=== PATIENT | male | born 1955 ===

== ENCOUNTER 2017-04-20 00:27 | Inpatient (IN) ==
[2017-04-20 01:31] LABS: Basophils # 0.1 10*3/uL (0.0-0.2); Basophils % 0.6 % (0.0-0.8); Eosinophils # 0.2 10*3/uL (0.0-0.87); Eosinophils % 2.2 % (0.00-10.9); Hematocrit 47.9 VOL% (42.0-52.0); Hemoglobin 17.1 GM/DL (14.0-18.0); Immature Granulocytes % 0.4 %; Immature Granulocytes Absolute 0.04 #; Lymphocytes # 1.7 10*3/uL (1.4-4.0); Lymphocytes % 18.3 % (21.2-54.2); Mean Corpuscular HGB Conc 35.7 GM/DL (32-36); Mean Corpuscular Hemoglobin 33 PG (27-34); Mean Platelet Volume 9.5 FL (9.6-12.0); Monocytes # 0.5 10*3/uL (0.11-0.8); Monocytes % 5.6 % (1.7-12.7); Neutrophils # 6.8 10*3/uL (1.4-7.4); Neutrophils % 72.9 % (38.7-73.9); Platelet Count 214 T/CUMM (130-400); Red Blood Count 5.15 MC/CUMM (3.8-5.5); Red Cell Distribution Width 14.8 % (9.3-17.3); White Blood Count 9.3 T/CUMM (4-12)
[2017-04-20 01:41] LABS: Blood Urea Nitrogen 17 MG/DL (7-18); Calcium 6.7 MG/DL (8.5-10.1); Glucose 130 MG/DL (74-106); Osmolality,Calculated 282.4 MOS/KG (273-304); Sodium 140 MMOL/L (136-145)
[2017-04-20 02:08] LABS: Potassium 2.3 MMOL/L (3.5-5.1)
[2017-04-20 02:38] LABS: Barbiturates Screen,Urine Negative (Negative); Benzodiazepines Screen,Urine Negative (Negative); Cannabinoid Screen,Urine Positive (Negative); Opiate Screen,Urine Negative (Negative); Phencyclidine Screen,Urine Negative (Negative)
[2017-04-20] MEDS ORDERED: ONDANSETRON 4 MG/2 ML VIAL IV PRN (04:06)
[2017-04-20] MEDS ORDERED: ACETAMINOPHEN 325 MG TABLET PO PRN (04:06)
[2017-04-20] MEDS ORDERED: NITROGLYCERIN SL 0.4 MG TABLET SL PRN (04:14)
[2017-04-20] MEDS ORDERED: GLUCAGON 1 MG VIAL IM PRN (04:15)
[2017-04-20] MEDS ORDERED: POTASSIUM CHLORIDE 20 MEQ TABLET PO PRN ×3 (04:15→05:08)
[2017-04-20] MEDS ORDERED: SODIUM CHLORIDE 0.9% 1,000 ML IV SCH (04:30)
[2017-04-20] MEDS ORDERED: POTASSIUM CHLORIDE 20 MEQ TABLET PO ONE (05:47)
[2017-04-20] MEDS: INSULIN LISPRO 100 UNIT/ML SUBCUT SCH ×4 (08:44→20:29)
[2017-04-20] MEDS: LOSARTAN 50 MG TABLET PO SCH (09:08)
[2017-04-20] MEDS: ENOXAPARIN 40 MG/0.4 ML SYRINGE SUBCUT SCH (09:08)
[2017-04-20] MEDS: CARVEDILOL 12.5 MG TABLET PO SCH ×2 (09:09→20:47)
[2017-04-20] MEDS: CALCIUM (CARBONATE)/VITAMIN D 500 MG-200 UNIT TABLET PO SCH (09:09)
[2017-04-20] MEDS: PANTOPRAZOLE 40 MG TABLET PO SCH (09:10)
[2017-04-20] MEDS ORDERED: MAGNESIUM SULF INJ 3 GM in SODIUM CHLORIDE 0.9% 100 ML IV ONE (09:36)
[2017-04-20] MEDS ORDERED: CALCIUM GLUCONATE 1,000 MG in SODIUM CHLORIDE 0.9% 100 ML IV ONE (09:41)
[2017-04-20] MEDS: SODIUM CHLORIDE 0.9% 1,000 ML IV SCH ×3 (10:56→18:54)
[2017-04-20] MEDS: amLODIPine 5 MG TABLET PO SCH (10:58)
[2017-04-20] MEDS: SIMVASTATIN 20 MG TABLET PO SCH (20:47)
[2017-04-20] MEDS: INSULIN GLARGINE 100 UNIT/ML SUBCUT SCH (20:47)
[2017-04-21] MEDS: SODIUM CHLORIDE 0.9% 1,000 ML IV SCH (02:10)
[2017-04-21 05:57] LABS: Basophils # 0.1 10*3/uL (0.0-0.2); Basophils % 0.7 % (0.0-0.8); Eosinophils # 0.2 10*3/uL (0.0-0.87); Eosinophils % 2.5 % (0.00-10.9); Hemoglobin 15.7 GM/DL (14.0-18.0); Immature Granulocytes % 0.5 %; Immature Granulocytes Absolute 0.04 #; Lymphocytes # 1.6 10*3/uL (1.4-4.0); Lymphocytes % 18.9 % (21.2-54.2); Mean Corpuscular HGB Conc 34.9 GM/DL (32-36); Mean Corpuscular Hemoglobin 33 PG (27-34); Mean Corpuscular Volume 93.9 FL (87-102); Mean Platelet Volume 9.4 FL (9.6-12.0); Monocytes # 0.6 10*3/uL (0.11-0.8); Monocytes % 7.1 % (1.7-12.7); Neutrophils # 5.9 10*3/uL (1.4-7.4); Neutrophils % 70.3 % (38.7-73.9); Platelet Count 187 T/CUMM (130-400); Red Blood Count 4.79 MC/CUMM (3.8-5.5); Red Cell Distribution Width 14.6 % (9.3-17.3); White Blood Count 8.4 T/CUMM (4-12)
[2017-04-21 06:33] LABS: Bilirubin,Total 0.9 MG/DL (0.2-1.0); Calcium 6.6 MG/DL (8.5-10.1); Osmolality,Calculated 283.3 MOS/KG (273-304); Total Protein 5.5 G/DL (6.4-8.3)
[2017-04-21 06:53] LABS: Potassium 2.2 MMOL/L (3.5-5.1)
[2017-04-21] MEDS ORDERED: MAGNESIUM SULF RIDER 2 GM in PREMIX 1 EACH IV PRN (06:57)
[2017-04-21] MEDS ORDERED: MAGNESIUM SULF RIDER 4 GM in PREMIX 1 EACH IV PRN (06:57)
[2017-04-21] MEDS ORDERED: CALCIUM GLUCONATE 1,000 MG in SODIUM CHLORIDE 0.9% 100 ML IV ONE (08:00)
[2017-04-21] MEDS: POTASSIUM CHLORIDE INJ 30 MEQ in SODIUM CHLORIDE 0.9% 1,000 ML IV SCH ×3 (09:54→23:09)
[2017-04-21] MEDS: PANTOPRAZOLE 40 MG TABLET PO SCH (09:55)
[2017-04-21] MEDS: amLODIPine 5 MG TABLET PO SCH (09:55)
[2017-04-21] MEDS: CARVEDILOL 12.5 MG TABLET PO SCH ×2 (09:55→21:40)
[2017-04-21] MEDS: LOSARTAN 50 MG TABLET PO SCH (09:55)
[2017-04-21] MEDS: CALCIUM (CARBONATE)/VITAMIN D 500 MG-200 UNIT TABLET PO SCH (09:55)
[2017-04-21] MEDS: CHOLESTYRAMINE/ASPARTAME 4 GM PACK PO SCH (09:56)
[2017-04-21] MEDS: ENOXAPARIN 40 MG/0.4 ML SYRINGE SUBCUT SCH (09:57)
[2017-04-21] MEDS: INSULIN LISPRO 100 UNIT/ML SUBCUT SCH ×4 (09:57→21:43)
[2017-04-21] MEDS ORDERED: ALPRAZolam 0.5 MG TABLET PO PRN (18:26)
[2017-04-21] MEDS ORDERED: LORazepam 2 MG/1 ML VIAL IV ONE (18:26)
[2017-04-21] MEDS: chlordiazePOXIDE 25 MG CAPSULE PO SCH ×2 (19:20→21:40)
[2017-04-21] MEDS: ZALEPLON 5 MG CAPSULE PO SCH (21:40)
[2017-04-21] MEDS: LORazepam 1 MG TABLET PO SCH (21:40)
[2017-04-21] MEDS: SIMVASTATIN 20 MG TABLET PO SCH (21:40)
[2017-04-21] MEDS: INSULIN GLARGINE 100 UNIT/ML SUBCUT SCH (21:41)
[2017-04-21] MEDS: THIAMINE INJ 100 MG, FOLIC ACID INJ 1 MG, MULTIVITAMIN INJ 10 ML in SODIUM CHLORIDE 0.4... IV SCH (22:36)
[2017-04-22 02:49] LABS: Basophils # 0.1 10*3/uL (0.0-0.2); Basophils % 0.6 % (0.0-0.8); Eosinophils # 0.2 10*3/uL (0.0-0.87); Eosinophils % 2.2 % (0.00-10.9); Hematocrit 43.7 VOL% (42.0-52.0); Hemoglobin 14.9 GM/DL (14.0-18.0); Immature Granulocytes % 0.5 %; Immature Granulocytes Absolute 0.04 #; Lymphocytes # 1.7 10*3/uL (1.4-4.0); Lymphocytes % 19.4 % (21.2-54.2); Mean Corpuscular HGB Conc 34.1 GM/DL (32-36); Mean Corpuscular Hemoglobin 33 PG (27-34); Mean Corpuscular Volume 95.6 FL (87-102); Mean Platelet Volume 9.8 FL (9.6-12.0); Monocytes # 0.6 10*3/uL (0.11-0.8); Monocytes % 7.1 % (1.7-12.7); Neutrophils % 70.2 % (38.7-73.9); Platelet Count 171 T/CUMM (130-400); Red Blood Count 4.57 MC/CUMM (3.8-5.5); Red Cell Distribution Width 14.4 % (9.3-17.3); White Blood Count 8.6 T/CUMM (4-12)
[2017-04-22 04:43] LABS: Bilirubin,Total 0.7 MG/DL (0.2-1.0); Calcium 6.7 MG/DL (8.5-10.1); Total Protein 5.3 G/DL (6.4-8.3)
[2017-04-22 04:54] LABS: Potassium 2.3 MMOL/L (3.5-5.1)
[2017-04-22] MEDS ORDERED: CALCIUM GLUCONATE 2,000 MG in SODIUM CHLORIDE 0.9% 100 ML IV ONE (08:00)
[2017-04-22] MEDS ORDERED: POTASSIUM PHOSPHATE 30 MMOL in SODIUM CHLORIDE 0.9% 250 ML IV ONE (09:00)
[2017-04-22] MEDS ORDERED: MAGNESIUM SULF RIDER 4 GM in PREMIX 1 EACH IV PRN (09:15)
[2017-04-22] MEDS: CARVEDILOL 12.5 MG TABLET PO SCH ×2 (09:56→21:14)
[2017-04-22] MEDS: CALCIUM (CARBONATE)/VITAMIN D 500 MG-200 UNIT TABLET PO SCH (09:56)
[2017-04-22] MEDS: LORazepam 1 MG TABLET PO SCH ×3 (09:57→21:14)
[2017-04-22] MEDS: PANTOPRAZOLE 40 MG TABLET PO SCH (09:57)
[2017-04-22] MEDS: chlordiazePOXIDE 25 MG CAPSULE PO SCH ×3 (09:57→21:13)
[2017-04-22] MEDS: LOSARTAN 50 MG TABLET PO SCH (09:57)
[2017-04-22] MEDS: amLODIPine 5 MG TABLET PO SCH (09:57)
[2017-04-22] MEDS: SODIUM CHLOR 0.9% KCL 40 MEQ 40 MEQ/1,000 ML BAG IV SCH ×2 (10:20→15:23)
[2017-04-22] MEDS: POTASSIUM CHLORIDE 20 MEQ TABLET PO SCH ×4 (10:27→21:13)
[2017-04-22] MEDS: INSULIN LISPRO 100 UNIT/ML SUBCUT SCH ×4 (10:44→21:48)
[2017-04-22] MEDS: POTASSIUM CHLORIDE INJ 30 MEQ in SODIUM CHLORIDE 0.9% 1,000 ML IV SCH (10:48)
[2017-04-22] MEDS: POTASSIUM CHLORIDE RIDER 10 MEQ in PREMIX 1 EACH IV SCH ×2 (11:43→12:57)
[2017-04-22] MEDS ORDERED: POLYETHYLENE GLYCOL POWDER 255 GM BOTTLE PO ONE (18:00)
[2017-04-22 20:34] LABS: Calcium 7.1 MG/DL (8.5-10.1); Osmolality,Calculated 283.5 MOS/KG (273-304); Potassium 3.5 MMOL/L (3.5-5.1)
[2017-04-22] MEDS ORDERED: MAGNESIUM CITRATE 300 ML BOTTLE PO ONE (21:00)
[2017-04-22] MEDS: ZALEPLON 5 MG CAPSULE PO SCH (21:13)
[2017-04-22] MEDS: SIMVASTATIN 20 MG TABLET PO SCH (21:13)
[2017-04-22] MEDS: POTASSIUM CHLORIDE RIDER 10 MEQ in PREMIX 1 EACH IV PRN (21:14)
[2017-04-22] MEDS: THIAMINE INJ 100 MG, FOLIC ACID INJ 1 MG, MULTIVITAMIN INJ 10 ML in SODIUM CHLORIDE 0.4... IV SCH (21:33)
[2017-04-22] MEDS: INSULIN GLARGINE 100 UNIT/ML SUBCUT SCH (21:48)
[2017-04-23] MEDS: SODIUM CHLOR 0.9% KCL 40 MEQ 40 MEQ/1,000 ML BAG IV SCH ×4 (04:17→21:50)
[2017-04-23] MEDS ORDERED: SODIUM CHLORIDE 0.9% 1,000 ML IV PRN (04:56)
[2017-04-23] MEDS: POTASSIUM CHLORIDE RIDER 10 MEQ in PREMIX 1 EACH IV PRN ×2 (05:26→10:09)
[2017-04-23 06:14] LABS: Basophils % 0.4 % (0.0-0.8); Eosinophils # 0.2 10*3/uL (0.0-0.87); Eosinophils % 1.8 % (0.00-10.9); Hematocrit 43.6 VOL% (42.0-52.0); Immature Granulocytes % 0.6 %; Immature Granulocytes Absolute 0.07 #; Lymphocytes # 0.8 10*3/uL (1.4-4.0); Lymphocytes % 6.8 % (21.2-54.2); Mean Corpuscular HGB Conc 34.4 GM/DL (32-36); Mean Corpuscular Hemoglobin 33 PG (27-34); Mean Corpuscular Volume 94.8 FL (87-102); Mean Platelet Volume 10.1 FL (9.6-12.0); Monocytes # 0.8 10*3/uL (0.11-0.8); Monocytes % 7.3 % (1.7-12.7); Neutrophils # 9.5 10*3/uL (1.4-7.4); Neutrophils % 83.1 % (38.7-73.9); Platelet Count 168 T/CUMM (130-400); Red Cell Distribution Width 14.5 % (9.3-17.3); White Blood Count 11.4 T/CUMM (4-12)
[2017-04-23 06:18] LABS: PT Patient Result 10.7 SECS; Partial Thromboplastin Time 32.7 SECS (0-40)
[2017-04-23 06:43] LABS: Albumin 1.9 G/DL (3.4-5.0); Bilirubin,Total 0.9 MG/DL (0.2-1.0); Calcium 7.1 MG/DL (8.5-10.1); Osmolality,Calculated 279.1 MOS/KG (273-304); Potassium 3.1 MMOL/L (3.5-5.1)
[2017-04-23 06:49] LABS: Calcium 7.1 MG/DL (8.5-10.1); Osmolality,Calculated 279.1 MOS/KG (273-304); Potassium 3.1 MMOL/L (3.5-5.1)
[2017-04-23] MEDS ORDERED: POTASSIUM PHOSPHATE 30 MMOL in SODIUM CHLORIDE 0.9% 250 ML IV ONE (08:00)
[2017-04-23] MEDS: POTASSIUM CHLORIDE RIDER 10 MEQ in PREMIX 1 EACH IV SCH ×4 (09:11→11:10)
[2017-04-23] MEDS: LOSARTAN 50 MG TABLET PO SCH (09:12)
[2017-04-23] MEDS: CALCIUM (CARBONATE)/VITAMIN D 500 MG-200 UNIT TABLET PO SCH (09:13)
[2017-04-23] MEDS: PANTOPRAZOLE 40 MG TABLET PO SCH (09:13)
[2017-04-23] MEDS: amLODIPine 5 MG TABLET PO SCH (09:13)
[2017-04-23] MEDS: POTASSIUM CHLORIDE 20 MEQ TABLET PO SCH ×4 (09:13→21:38)
[2017-04-23] MEDS: CARVEDILOL 12.5 MG TABLET PO SCH ×2 (09:13→21:39)
[2017-04-23] MEDS: chlordiazePOXIDE 25 MG CAPSULE PO SCH ×4 (09:36→21:49)
[2017-04-23] MEDS: LORazepam 1 MG TABLET PO SCH ×4 (09:36→21:45)
[2017-04-23] MEDS ORDERED: hydrALAZINE 20 MG/1 ML VIAL IV ONE (09:43)
[2017-04-23] MEDS: INSULIN LISPRO 100 UNIT/ML SUBCUT SCH ×4 (09:48→21:47)
[2017-04-23] MEDS: DEXTROSE 50% 25 GM/50 ML VIAL IV PRN ×2 (16:59→23:26)
[2017-04-23] MEDS: THIAMINE INJ 100 MG, FOLIC ACID INJ 1 MG, MULTIVITAMIN INJ 10 ML in SODIUM CHLORIDE 0.4... IV SCH ×2 (17:10→21:49)
[2017-04-23] MEDS: SIMVASTATIN 20 MG TABLET PO SCH (21:39)
[2017-04-23] MEDS: INSULIN GLARGINE 100 UNIT/ML SUBCUT SCH (21:48)
[2017-04-23] MEDS: ZALEPLON 5 MG CAPSULE PO SCH (21:49)
[2017-04-24 04:59] LABS: Basophils # 0.1 10*3/uL (0.0-0.2); Basophils % 0.7 % (0.0-0.8); Eosinophils # 0.2 10*3/uL (0.0-0.87); Eosinophils % 2.5 % (0.00-10.9); Hematocrit 41.3 VOL% (42.0-52.0); Hemoglobin 13.6 GM/DL (14.0-18.0); Immature Granulocytes % 0.5 %; Immature Granulocytes Absolute 0.04 #; Lymphocytes # 1.5 10*3/uL (1.4-4.0); Lymphocytes % 19.4 % (21.2-54.2); Mean Corpuscular HGB Conc 32.9 GM/DL (32-36); Mean Corpuscular Hemoglobin 33 PG (27-34); Mean Platelet Volume 9.3 FL (9.6-12.0); Monocytes # 0.8 10*3/uL (0.11-0.8); Monocytes % 10.9 % (1.7-12.7); Neutrophils # 5.1 10*3/uL (1.4-7.4); Platelet Count 142 T/CUMM (130-400); Red Blood Count 4.13 MC/CUMM (3.8-5.5); Red Cell Distribution Width 14.7 % (9.3-17.3); White Blood Count 7.7 T/CUMM (4-12)
[2017-04-24] MEDS: SODIUM CHLOR 0.9% KCL 40 MEQ 40 MEQ/1,000 ML BAG IV SCH ×3 (06:52→08:05)
[2017-04-24] MEDS: DEXTROSE 50% 25 GM/50 ML VIAL IV PRN (07:54)
[2017-04-24] MEDS ORDERED: FAMOTIDINE 20 MG TABLET PO ONE (08:00)
[2017-04-24 08:08] LABS: Calcium 6.7 MG/DL (8.5-10.1); Osmolality,Calculated 278.3 MOS/KG (273-304)
[2017-04-24] MEDS ORDERED: MAGNESIUM CITRATE 300 ML BOTTLE PO STA (08:16)
[2017-04-24] MEDS: SODIUM CHLOR 0.9% KCL 20 MEQ 20 MEQ/1,000 ML BAG IV SCH ×2 (10:31→21:25)
[2017-04-24] MEDS ORDERED: INSULIN GLARGINE 100 UNIT/ML SUBCUT SCH (10:57)
[2017-04-24] MEDS: INSULIN LISPRO 100 UNIT/ML SUBCUT SCH ×4 (11:24→21:13)
[2017-04-24] MEDS: chlordiazePOXIDE 25 MG CAPSULE PO SCH ×3 (11:47→21:12)
[2017-04-24] MEDS: LORazepam 1 MG TABLET PO SCH ×3 (11:47→21:11)
[2017-04-24] MEDS ORDERED: PROPOFOL 200 MG/20 ML VIAL IV ONE (15:36)
[2017-04-24] MEDS ORDERED: hydrALAZINE 20 MG/1 ML VIAL ONE (15:36)
[2017-04-24] MEDS: CHOLESTYRAMINE/ASPARTAME 4 GM PACK PO SCH ×2 (16:20→21:14)
[2017-04-24] MEDS: CARVEDILOL 12.5 MG TABLET PO SCH ×2 (16:20→21:12)
[2017-04-24] MEDS: amLODIPine 5 MG TABLET PO SCH (16:22)
[2017-04-24] MEDS: MAGNESIUM OXIDE 400 MG TABLET PO SCH ×2 (16:22→21:12)
[2017-04-24] MEDS: CALCIUM (CARBONATE)/VITAMIN D 500 MG-200 UNIT TABLET PO SCH (16:22)
[2017-04-24] MEDS: LOSARTAN 50 MG TABLET PO SCH (16:22)
[2017-04-24] MEDS: PANTOPRAZOLE 40 MG TABLET PO SCH (16:22)
[2017-04-24] MEDS: DIPHENOXYLATE/ATROPINE 2.5-0.025 MG TABLET PO SCH ×2 (16:57→21:11)
[2017-04-24] MEDS: SIMVASTATIN 20 MG TABLET PO SCH (21:11)
[2017-04-24] MEDS: CIPROFLOXACIN 500 MG TABLET PO SCH (21:12)
[2017-04-24] MEDS: THIAMINE INJ 100 MG, FOLIC ACID INJ 1 MG, MULTIVITAMIN INJ 10 ML in SODIUM CHLORIDE 0.4... IV SCH (21:14)
[2017-04-24] MEDS: ZALEPLON 5 MG CAPSULE PO SCH (21:14)
[2017-04-25] MEDS ORDERED: IBUPROFEN 800 MG TABLET PO ONE (01:00)
[2017-04-25 05:04] LABS: Basophils # 0.1 10*3/uL (0.0-0.2); Basophils % 0.9 % (0.0-0.8); Eosinophils # 0.2 10*3/uL (0.0-0.87); Eosinophils % 2.1 % (0.00-10.9); Hematocrit 42.8 VOL% (42.0-52.0); Hemoglobin 13.9 GM/DL (14.0-18.0); Immature Granulocytes % 0.5 %; Immature Granulocytes Absolute 0.04 #; Lymphocytes # 1.2 10*3/uL (1.4-4.0); Lymphocytes % 14.8 % (21.2-54.2); Mean Corpuscular HGB Conc 32.5 GM/DL (32-36); Mean Corpuscular Hemoglobin 33 PG (27-34); Mean Corpuscular Volume 100.9 FL (87-102); Mean Platelet Volume 9.6 FL (9.6-12.0); Monocytes # 0.8 10*3/uL (0.11-0.8); Monocytes % 9.4 % (1.7-12.7); Neutrophils % 72.3 % (38.7-73.9); Platelet Count 162 T/CUMM (130-400); Red Blood Count 4.24 MC/CUMM (3.8-5.5); Red Cell Distribution Width 14.7 % (9.3-17.3); White Blood Count 8.2 T/CUMM (4-12)
[2017-04-25 05:25] LABS: Potassium 4.8 MMOL/L (3.5-5.1)
[2017-04-25] MEDS: INSULIN LISPRO 100 UNIT/ML SUBCUT SCH ×2 (09:45→11:47)
[2017-04-25] MEDS: LORazepam 1 MG TABLET PO SCH (09:46)
[2017-04-25] MEDS: LOSARTAN 50 MG TABLET PO SCH (09:46)
[2017-04-25] MEDS: DIPHENOXYLATE/ATROPINE 2.5-0.025 MG TABLET PO SCH ×2 (09:46→13:26)
[2017-04-25] MEDS: chlordiazePOXIDE 25 MG CAPSULE PO SCH (09:46)
[2017-04-25] MEDS: CIPROFLOXACIN 500 MG TABLET PO SCH (09:46)
[2017-04-25] MEDS: PANTOPRAZOLE 40 MG TABLET PO SCH (09:46)
[2017-04-25] MEDS: CALCIUM (CARBONATE)/VITAMIN D 500 MG-200 UNIT TABLET PO SCH (09:46)
[2017-04-25] MEDS: amLODIPine 5 MG TABLET PO SCH (09:47)
[2017-04-25] MEDS: MAGNESIUM OXIDE 400 MG TABLET PO SCH (09:47)
[2017-04-25] MEDS: CARVEDILOL 12.5 MG TABLET PO SCH (09:47)
[2017-04-25] MEDS: CHOLESTYRAMINE/ASPARTAME 4 GM PACK PO SCH (09:49)
[2017-04-25] MEDS: SODIUM CHLOR 0.9% KCL 20 MEQ 20 MEQ/1,000 ML BAG IV SCH (10:52)
[2017-04-25 11:52] VITALS: BP 140/78
== END 2017-04-25 13:45 | disposition home or self-care (01) | DRG 392 ==
LOC: EDUNIT# → N.ED 00:27 → N.EDINP 00:27 → N.TELEN 03:57

== ENCOUNTER 2017-07-14 20:10 | Inpatient (IN) ==
[2017-07-15] MEDS ORDERED: ALBUTEROL/IPRATROPIUM 3 ML NEB RESP TX PRN (00:43)
[2017-07-15] MEDS ORDERED: NITROGLYCERIN SL 0.4 MG TABLET SL PRN (00:44)
[2017-07-15] MEDS ORDERED: SODIUM CHLORIDE 0.9% 1,000 ML IV SCH (01:00)
[2017-07-15] MEDS ORDERED: GLUCAGON 1 MG VIAL IM PRN (01:04)
[2017-07-15 01:50] LABS: Basophils # 0.1 10*3/uL (0.0-0.2); Eosinophils # 0.4 10*3/uL (0.0-0.87); Eosinophils % 4.3 % (0.00-10.9); Hematocrit 32.4 VOL% (42.0-52.0); Hemoglobin 10.5 GM/DL (14.0-18.0); Immature Granulocytes Absolute 0.09 #; Lymphocytes # 0.9 10*3/uL (1.4-4.0); Lymphocytes % 10.3 % (21.2-54.2); Mean Corpuscular HGB Conc 32.4 GM/DL (32-36); Mean Corpuscular Hemoglobin 31 PG (27-34); Mean Corpuscular Volume 96.4 FL (87-102); Mean Platelet Volume 10.7 FL (9.6-12.0); Monocytes # 0.7 10*3/uL (0.11-0.8); Monocytes % 8.1 % (1.7-12.7); Neutrophils # 6.7 10*3/uL (1.4-7.4); Neutrophils % 75.3 % (38.7-73.9); Platelet Count 346 T/CUMM (130-400); Red Blood Count 3.36 MC/CUMM (3.8-5.5); Red Cell Distribution Width 13.2 % (9.3-17.3); White Blood Count 8.8 T/CUMM (4-12)
[2017-07-15 02:25] LABS: Alanine Aminotransferase 22 U/L (16-61); Albumin 2.1 G/DL (3.4-5.0); Alkaline Phosphatase 150 U/L (45-117); Aspartate Amino Transferase 36 U/L (0-37); Bilirubin,Total < 0.39 MG/DL (0.2-1.0); Blood Urea Nitrogen 65 MG/DL (7-18); Glucose 77 MG/DL (74-106); Osmolality,Calculated 298.3 MOS/KG (273-304); Sodium 141 MMOL/L (136-145); Total Protein 7.3 G/DL (6.4-8.3)
[2017-07-15] MEDS ORDERED: LEVOFLOXACIN INJ 750 MG in PREMIX 1 EACH IV SCH (02:30)
[2017-07-15 06:03] LABS: Apearance,Urine CLEAR (Clear); Bacteria,Urine Occasional /HPF (Few); Bilirubin,Urine Negative (Negative); Blood, Urine Negative (Negative); Glucose,Urine (UA) Negative (Negative); Hyaline Casts,Urine 8 /LPF (0-3); Ketones,Urine Negative (Negative); Nitrite,Urine Negative (Negative); Protein,Urine 100 MG/DL; Squamous Epithelial Cell,Urine Occasional /HPF (0-10); Urine Color Yellow (Yellow); Urine Specific Gravity 1.009 (1.001-1.035); Urine Urobilinogen < 2.0 EU/DL (0.2-1.0); WBC,Urine <1 /HPF (0-6)
[2017-07-15 06:08] LABS: Basophils # 0.1 10*3/uL (0.0-0.2); Basophils % 0.9 % (0.0-0.8); Eosinophils # 0.3 10*3/uL (0.0-0.87); Eosinophils % 3.9 % (0.00-10.9); Hemoglobin 10.3 GM/DL (14.0-18.0); Immature Granulocytes Absolute 0.09 #; Lymphocytes % 10.9 % (21.2-54.2); Mean Corpuscular HGB Conc 32.2 GM/DL (32-36); Mean Corpuscular Hemoglobin 31 PG (27-34); Mean Platelet Volume 11.1 FL (9.6-12.0); Monocytes # 0.8 10*3/uL (0.11-0.8); Monocytes % 8.6 % (1.7-12.7); Neutrophils # 6.5 10*3/uL (1.4-7.4); Neutrophils % 74.7 % (38.7-73.9); Platelet Count 367 T/CUMM (130-400); Red Cell Distribution Width 13.3 % (9.3-17.3); White Blood Count 8.8 T/CUMM (4-12)
[2017-07-15] MEDS: INSULIN REGULAR 100 UNIT/ML SUBCUT SCH ×3 (06:40→17:45)
[2017-07-15] MEDS ORDERED: FUROSEMIDE 40 MG/4 ML VIAL IV SCH (09:00)
[2017-07-15] MEDS: PANTOPRAZOLE 40 MG TABLET PO SCH (09:54)
[2017-07-15] MEDS: ENOXAPARIN 30 MG/0.3 ML SYRINGE SUBCUT SCH (09:54)
[2017-07-15] MEDS: CARVEDILOL 12.5 MG TABLET PO SCH ×2 (09:54→21:23)
[2017-07-15] MEDS: CALCIUM (CARBONATE)/VITAMIN D 500 MG-200 UNIT TABLET PO SCH (09:54)
[2017-07-15] MEDS: amLODIPine 5 MG TABLET PO SCH (09:54)
[2017-07-15] MEDS ORDERED: FUROSEMIDE 40 MG/4 ML VIAL IV ONE (10:30)
[2017-07-15] MEDS: SILVER SULFADIAZINE 1% CREAM 25 GM TUBE TOP SCH (13:15)
[2017-07-15 14:40] LABS: Amorphous Crystals,Urine Occasional /HPF (Few); Apearance,Urine CLOUDY (Clear); Bacteria,Urine Occasional /HPF (Few); Bilirubin,Urine Negative (Negative); Blood, Urine Moderate mg/dL (Negative); Glucose,Urine (UA) Negative (Negative); Granular Casts,Urine 4 /LPF (0-1); Hyaline Casts,Urine 4 /LPF (0-3); Ketones,Urine Negative (Negative); Mucus,Urine Occasional /LPF (Occasional); Nitrite,Urine Negative (Negative); Protein,Urine 100 MG/DL; Renal Epithelial Cells,Urine Occasional /HPF (<1); Urine Color Yellow (Yellow); Urine Specific Gravity 1.009 (1.001-1.035); Urine Urobilinogen < 2.0 EU/DL (0.2-1.0); WBC,Urine 2 /HPF (0-6)
[2017-07-15] MEDS: ALBUMIN 25% 25 GM in PREMIX 1 EACH IV SCH ×2 (16:28→21:23)
[2017-07-15] MEDS: FUROSEMIDE 40 MG/4 ML VIAL IV SCH (16:49)
[2017-07-15] MEDS: SIMVASTATIN 20 MG TABLET PO SCH (21:23)
[2017-07-15] MEDS: INSULIN GLARGINE 100 UNIT/ML SUBCUT SCH (21:24)
[2017-07-16] MEDS: INSULIN REGULAR 100 UNIT/ML SUBCUT SCH ×5 (00:04→23:59)
[2017-07-16] MEDS: FUROSEMIDE 40 MG/4 ML VIAL IV SCH ×3 (01:35→16:35)
[2017-07-16] MEDS: ALBUMIN 25% 25 GM in PREMIX 1 EACH IV SCH ×3 (05:24→21:00)
[2017-07-16 07:24] LABS: Basophils # 0.1 10*3/uL (0.0-0.2); Basophils % 0.9 % (0.0-0.8); Eosinophils # 0.3 10*3/uL (0.0-0.87); Eosinophils % 4.1 % (0.00-10.9); Hematocrit 29.3 VOL% (42.0-52.0); Hemoglobin 9.2 GM/DL (14.0-18.0); Immature Granulocytes % 0.8 %; Immature Granulocytes Absolute 0.05 #; Lymphocytes # 1.4 10*3/uL (1.4-4.0); Lymphocytes % 21.6 % (21.2-54.2); Mean Corpuscular HGB Conc 31.4 GM/DL (32-36); Mean Corpuscular Hemoglobin 31 PG (27-34); Mean Corpuscular Volume 97.7 FL (87-102); Mean Platelet Volume 10.6 FL (9.6-12.0); Monocytes # 0.8 10*3/uL (0.11-0.8); Monocytes % 11.5 % (1.7-12.7); Neutrophils % 61.1 % (38.7-73.9); Platelet Count 304 T/CUMM (130-400); Red Cell Distribution Width 13.6 % (9.3-17.3); White Blood Count 6.5 T/CUMM (4-12)
[2017-07-16 07:48] LABS: % Iron Saturation 18.1 % (18-50); Calcium 7.9 MG/DL (8.5-10.1); Osmolality,Calculated 306.8 MOS/KG (273-304); Potassium 4.1 MMOL/L (3.5-5.1); Uric Acid 9.7 MG/DL (3.5-7.2)
[2017-07-16 07:59] LABS: Parathyroid Hormone Intact 216.7 PG/ML (18.4-80.1)
[2017-07-16] MEDS: PANTOPRAZOLE 40 MG TABLET PO SCH (08:29)
[2017-07-16] MEDS: CALCIUM (CARBONATE)/VITAMIN D 500 MG-200 UNIT TABLET PO SCH (08:29)
[2017-07-16] MEDS: CARVEDILOL 12.5 MG TABLET PO SCH ×2 (08:29→20:59)
[2017-07-16] MEDS: amLODIPine 5 MG TABLET PO SCH (08:29)
[2017-07-16] MEDS: SILVER SULFADIAZINE 1% CREAM 25 GM TUBE TOP SCH (08:30)
[2017-07-16] MEDS: ENOXAPARIN 30 MG/0.3 ML SYRINGE SUBCUT SCH (08:30)
[2017-07-16] MEDS: INSULIN GLARGINE 100 UNIT/ML SUBCUT SCH (20:57)
[2017-07-16] MEDS: SIMVASTATIN 20 MG TABLET PO SCH (20:59)
[2017-07-17] MEDS: FUROSEMIDE 40 MG/4 ML VIAL IV SCH ×2 (00:03→09:11)
[2017-07-17] MEDS: ALBUMIN 25% 25 GM in PREMIX 1 EACH IV SCH (05:00)
[2017-07-17] MEDS: LEVOFLOXACIN INJ 500 MG in PREMIX 1 EACH IV SCH (05:59)
[2017-07-17 06:45] LABS: Basophils # 0.1 10*3/uL (0.0-0.2); Basophils % 1.1 % (0.0-0.8); Eosinophils # 0.3 10*3/uL (0.0-0.87); Eosinophils % 3.4 % (0.00-10.9); Hematocrit 30.7 VOL% (42.0-52.0); Hemoglobin 9.6 GM/DL (14.0-18.0); Immature Granulocytes % 0.8 %; Immature Granulocytes Absolute 0.07 #; Lymphocytes % 11.2 % (21.2-54.2); Mean Corpuscular HGB Conc 31.3 GM/DL (32-36); Mean Corpuscular Hemoglobin 31 PG (27-34); Monocytes # 0.8 10*3/uL (0.11-0.8); Monocytes % 8.6 % (1.7-12.7); Neutrophils # 6.5 10*3/uL (1.4-7.4); Neutrophils % 74.9 % (38.7-73.9); Platelet Count 302 T/CUMM (130-400); Red Blood Count 3.07 MC/CUMM (3.8-5.5); Red Cell Distribution Width 13.6 % (9.3-17.3); White Blood Count 8.7 T/CUMM (4-12)
[2017-07-17] MEDS: INSULIN REGULAR 100 UNIT/ML SUBCUT SCH ×3 (06:58→17:21)
[2017-07-17 07:10] LABS: Albumin 3.4 G/DL (3.4-5.0); Calcium 8.1 MG/DL (8.5-10.1); Potassium 4.2 MMOL/L (3.5-5.1)
[2017-07-17] MEDS: CALCIUM (CARBONATE)/VITAMIN D 500 MG-200 UNIT TABLET PO SCH (09:11)
[2017-07-17] MEDS: PANTOPRAZOLE 40 MG TABLET PO SCH (09:11)
[2017-07-17] MEDS: ENOXAPARIN 30 MG/0.3 ML SYRINGE SUBCUT SCH (09:11)
[2017-07-17] MEDS: CARVEDILOL 12.5 MG TABLET PO SCH (09:34)
[2017-07-17] MEDS: amLODIPine 5 MG TABLET PO SCH (09:34)
[2017-07-17] MEDS: CALCITRIOL 0.25 MCG CAPSULE PO SCH (10:27)
[2017-07-17] MEDS: TAMSULOSIN 0.4 MG CAPSULE PO SCH (10:27)
[2017-07-17] MEDS: SILVER SULFADIAZINE 1% CREAM 25 GM TUBE TOP SCH (14:49)
[2017-07-17] MEDS: FUROSEMIDE 80 MG TABLET PO SCH (17:11)
[2017-07-17 17:43] LABS: Apearance,Urine CLEAR (Clear); Bacteria,Urine Occasional /HPF (Few); Bilirubin,Urine Negative (Negative); Blood, Urine Large mg/dL (Negative); Glucose,Urine (UA) Negative (Negative); Ketones,Urine Negative (Negative); Mucus,Urine Occasional /LPF (Occasional); Nitrite,Urine Negative (Negative); Protein,Urine 100 MG/DL; RBC,Urine 494 /HPF (0-4); Urine Color Yellow (Yellow); Urine Specific Gravity 1.008 (1.001-1.035); Urine Urobilinogen < 2.0 EU/DL (0.2-1.0); WBC,Urine 7 /HPF (0-6)
[2017-07-17] MEDS: ATORVASTATIN 20 MG TABLET PO SCH (21:32)
[2017-07-17] MEDS: CARVEDILOL 25 MG TABLET PO SCH (21:32)
[2017-07-17] MEDS: INSULIN GLARGINE 100 UNIT/ML SUBCUT SCH (21:32)
[2017-07-17] MEDS: ONDANSETRON 4 MG/2 ML VIAL IV PRN (21:33)
[2017-07-18] MEDS: INSULIN REGULAR 100 UNIT/ML SUBCUT SCH ×4 (00:04→17:50)
[2017-07-18] MEDS: ONDANSETRON 4 MG/2 ML VIAL IV PRN ×2 (02:51→21:02)
[2017-07-18 05:52] LABS: Basophils # 0.1 10*3/uL (0.0-0.2); Basophils % 0.8 % (0.0-0.8); Eosinophils # 0.4 10*3/uL (0.0-0.87); Eosinophils % 4.6 % (0.00-10.9); Hematocrit 31.2 VOL% (42.0-52.0); Immature Granulocytes Absolute 0.09 #; Lymphocytes % 10.5 % (21.2-54.2); Mean Corpuscular HGB Conc 32.1 GM/DL (32-36); Mean Corpuscular Hemoglobin 31 PG (27-34); Mean Corpuscular Volume 97.2 FL (87-102); Mean Platelet Volume 10.9 FL (9.6-12.0); Monocytes % 10.6 % (1.7-12.7); Neutrophils # 6.6 10*3/uL (1.4-7.4); Neutrophils % 72.5 % (38.7-73.9); Platelet Count 314 T/CUMM (130-400); Red Blood Count 3.21 MC/CUMM (3.8-5.5); Red Cell Distribution Width 13.2 % (9.3-17.3); White Blood Count 9.1 T/CUMM (4-12)
[2017-07-18 06:05] LABS: Calcium 8.5 MG/DL (8.5-10.1); Potassium 4.1 MMOL/L (3.5-5.1)
[2017-07-18 06:10] LABS: Calcium 8.3 MG/DL (8.5-10.1); Osmolality,Calculated 302.8 MOS/KG (273-304); Potassium 4.2 MMOL/L (3.5-5.1)
[2017-07-18] MEDS: CARVEDILOL 25 MG TABLET PO SCH ×2 (08:47→21:02)
[2017-07-18] MEDS: ENOXAPARIN 30 MG/0.3 ML SYRINGE SUBCUT SCH (08:47)
[2017-07-18] MEDS: CALCITRIOL 0.25 MCG CAPSULE PO SCH (08:47)
[2017-07-18] MEDS: FUROSEMIDE 80 MG TABLET PO SCH ×2 (08:48→16:57)
[2017-07-18] MEDS: ASPIRIN EC 81 MG TABLET PO SCH (08:48)
[2017-07-18] MEDS: PANTOPRAZOLE 40 MG TABLET PO SCH (08:48)
[2017-07-18] MEDS: TAMSULOSIN 0.4 MG CAPSULE PO SCH (08:48)
[2017-07-18] MEDS: SILVER SULFADIAZINE 1% CREAM 25 GM TUBE TOP SCH (16:35)
[2017-07-18] MEDS: ATORVASTATIN 20 MG TABLET PO SCH (21:01)
[2017-07-18] MEDS: INSULIN GLARGINE 100 UNIT/ML SUBCUT SCH (21:02)
[2017-07-19] MEDS: INSULIN REGULAR 100 UNIT/ML SUBCUT SCH ×4 (00:26→18:47)
[2017-07-19] MEDS ORDERED: FUROSEMIDE 40 MG/4 ML VIAL IV ONE (05:00)
[2017-07-19] MEDS ORDERED: ALBUTEROL/IPRATROPIUM 3 ML NEB RESP TX ONE (05:00)
[2017-07-19 05:07] LABS: ABG Base Excess -4.2 MMOL/L (-2.5-2.5); ABG Oxygen Saturation 91.5 % (95-100); ABG PCO2 51.8 MM HG (35-48); ABG PH 7.265 (7.35-7.45); ABG TCO2 24.6 MMOL/L (23-27)
[2017-07-19] MEDS: LEVOFLOXACIN INJ 500 MG in PREMIX 1 EACH IV SCH (05:12)
[2017-07-19 06:04] LABS: Calcium 8.5 MG/DL (8.5-10.1); Osmolality,Calculated 302.8 MOS/KG (273-304)
[2017-07-19] MEDS: CARVEDILOL 25 MG TABLET PO SCH (08:31)
[2017-07-19] MEDS: TAMSULOSIN 0.4 MG CAPSULE PO SCH (08:31)
[2017-07-19] MEDS: FUROSEMIDE 80 MG TABLET PO SCH ×2 (08:31→18:50)
[2017-07-19] MEDS: ENOXAPARIN 30 MG/0.3 ML SYRINGE SUBCUT SCH (08:31)
[2017-07-19] MEDS: CALCITRIOL 0.25 MCG CAPSULE PO SCH (08:31)
[2017-07-19] MEDS: PANTOPRAZOLE 40 MG TABLET PO SCH (08:31)
[2017-07-19] MEDS: ASPIRIN EC 81 MG TABLET PO SCH (08:31)
[2017-07-19] MEDS: SILVER SULFADIAZINE 1% CREAM 25 GM TUBE TOP SCH (15:00)
[2017-07-19] MEDS: ATORVASTATIN 20 MG TABLET PO SCH (21:35)
[2017-07-19] MEDS: INSULIN GLARGINE 100 UNIT/ML SUBCUT SCH (21:39)
[2017-07-20] MEDS: INSULIN REGULAR 100 UNIT/ML SUBCUT SCH ×4 (00:04→18:21)
[2017-07-20] MEDS: CARVEDILOL 25 MG TABLET PO SCH ×2 (00:05→10:45)
[2017-07-20 05:06] LABS: ABG HCO3 21.8 MMOL/L (20-26); ABG Oxygen Saturation 93.3 % (95-100); ABG PCO2 68.2 MM HG (35-48); ABG PO2 83.7 MM HG (80-95); ABG TCO2 23.9 MMOL/L (23-27); Allen Test Positive; Pt O2 Delivery Device Other
[2017-07-20 05:09] LABS: Basophils % 0.1 % (0.0-0.8); Eosinophils # 0.1 10*3/uL (0.0-0.87); Eosinophils % 1.4 % (0.00-10.9); Hematocrit 33.8 VOL% (42.0-52.0); Hemoglobin 10.6 GM/DL (14.0-18.0); Immature Granulocytes Absolute 0.08 #; Lymphocytes # 0.6 10*3/uL (1.4-4.0); Lymphocytes % 7.3 % (21.2-54.2); Mean Corpuscular HGB Conc 31.4 GM/DL (32-36); Mean Corpuscular Hemoglobin 31 PG (27-34); Mean Corpuscular Volume 99.7 FL (87-102); Mean Platelet Volume 10.8 FL (9.6-12.0); Monocytes # 0.4 10*3/uL (0.11-0.8); Monocytes % 4.7 % (1.7-12.7); Neutrophils # 6.7 10*3/uL (1.4-7.4); Neutrophils % 85.5 % (38.7-73.9); Platelet Count 245 T/CUMM (130-400); Red Blood Count 3.39 MC/CUMM (3.8-5.5); Red Cell Distribution Width 13.2 % (9.3-17.3); White Blood Count 7.9 T/CUMM (4-12)
[2017-07-20 05:13] LABS: ABG PH 7.123 (7.35-7.45)
[2017-07-20 05:47] LABS: Calcium 8.6 MG/DL (8.5-10.1); Osmolality,Calculated 306.8 MOS/KG (273-304); Potassium 4.3 MMOL/L (3.5-5.1)
[2017-07-20] MEDS ORDERED: PROPOFOL 1,000 MG/100 ML BOTTLE IV ONE (08:40)
[2017-07-20] MEDS ORDERED: SUCCINYLCHOLINE 200 MG/10 ML VIAL ONE (08:50)
[2017-07-20] MEDS: PROPOFOL 1,000 MG/100 ML BOTTLE IV SCH ×4 (09:00→20:01)
[2017-07-20] MEDS ORDERED: SODIUM CHLORIDE 0.9% 500 ML IV ONE (09:00)
[2017-07-20] MEDS: SODIUM CHLORIDE 0.9% 1,000 ML IV SCH ×2 (09:31→18:21)
[2017-07-20 10:16] LABS: ABG Base Excess -10.2 MMOL/L (-2.5-2.5); ABG HCO3 16.3 MMOL/L (20-26); ABG Oxygen Saturation 94.6 % (95-100); ABG PCO2 62.6 MM HG (35-48); ABG PO2 87.8 MM HG (80-95)
[2017-07-20 10:17] LABS: ABG PH 7.114 (7.35-7.45)
[2017-07-20] MEDS ORDERED: SODIUM BICARBONATE 50 MEQ/50 ML SYRINGE IV ONE ×2 (10:35→10:39)
[2017-07-20] MEDS: ASPIRIN EC 81 MG TABLET PO SCH (10:45)
[2017-07-20] MEDS: TAMSULOSIN 0.4 MG CAPSULE PO SCH (10:46)
[2017-07-20] MEDS: CALCITRIOL 0.25 MCG CAPSULE PO SCH (10:46)
[2017-07-20] MEDS: PANTOPRAZOLE 40 MG TABLET PO SCH (10:47)
[2017-07-20] MEDS: FUROSEMIDE 80 MG TABLET PO SCH (10:48)
[2017-07-20 11:53] LABS: Apearance,Urine Slightly Hazy (Clear); Bacteria,Urine Occasional /HPF (Few); Bilirubin,Urine Negative (Negative); Blood, Urine Small mg/dL (Negative); Glucose,Urine (UA) Negative (Negative); Granular Casts,Urine 2 /LPF (0-1); Hyaline Casts,Urine 3 /LPF (0-3); Ketones,Urine Negative (Negative); Nitrite,Urine Negative (Negative); Protein,Urine 100 MG/DL; RBC,Urine 1 /HPF (0-4); Urine Color Yellow (Yellow); Urine Specific Gravity 1.008 (1.001-1.035); Urine Urobilinogen < 2.0 EU/DL (0.2-1.0); WBC,Urine 1 /HPF (0-6)
[2017-07-20] MEDS ORDERED: ALBUTEROL NEB SOLN 5 MG/ML 20 ML/BOTTLE CONT NEB ONE (12:30)
[2017-07-20] MEDS: ENOXAPARIN 30 MG/0.3 ML SYRINGE SUBCUT SCH (12:54)
[2017-07-20] MEDS: SILVER SULFADIAZINE 1% CREAM 400 GM JAR TOP SCH (12:54)
[2017-07-20] MEDS: FUROSEMIDE 40 MG/4 ML VIAL IV SCH (15:57)
[2017-07-20] MEDS ORDERED: FUROSEMIDE 40 MG/4 ML VIAL IM SCH (16:00)
[2017-07-20 16:02] LABS: ABG Base Excess -8.4 MMOL/L (-2.5-2.5); ABG HCO3 17.7 MMOL/L (20-26); ABG Oxygen Saturation 98.9 % (95-100); ABG PCO2 39.2 MM HG (35-48); ABG TCO2 16.6 MMOL/L (23-27)
[2017-07-20] MEDS: DEXTROSE 50% 25 GM/50 ML VIAL IV PRN (18:27)
[2017-07-20] MEDS: INSULIN GLARGINE 100 UNIT/ML SUBCUT SCH (21:10)
[2017-07-20] MEDS: ATORVASTATIN 20 MG TABLET PO SCH (21:10)
[2017-07-21] MEDS: INSULIN REGULAR 100 UNIT/ML SUBCUT SCH ×3 (00:02→12:17)
[2017-07-21] MEDS: PROPOFOL 1,000 MG/100 ML BOTTLE IV SCH ×3 (00:05→08:40)
[2017-07-21 03:38] LABS: ABG Base Excess -9.2 MMOL/L (-2.5-2.5); ABG HCO3 14.9 MMOL/L (20-26); ABG PCO2 28.2 MM HG (35-48); ABG PO2 88.7 MM HG (80-95); ABG TCO2 15.7 MMOL/L (23-27)
[2017-07-21 03:39] LABS: ABG Oxygen Saturation 96.5 % (95-100)
[2017-07-21 05:02] LABS: Basophils % 0.6 % (0.0-0.8); Eosinophils # 0.4 10*3/uL (0.0-0.87); Eosinophils % 7.5 % (0.00-10.9); Hematocrit 30.8 VOL% (42.0-52.0); Hemoglobin 9.8 GM/DL (14.0-18.0); Immature Granulocytes % 0.8 %; Immature Granulocytes Absolute 0.04 #; Lymphocytes # 0.5 10*3/uL (1.4-4.0); Lymphocytes % 10.2 % (21.2-54.2); Mean Corpuscular HGB Conc 31.8 GM/DL (32-36); Mean Corpuscular Hemoglobin 31 PG (27-34); Mean Corpuscular Volume 98.1 FL (87-102); Mean Platelet Volume 11.2 FL (9.6-12.0); Monocytes # 0.3 10*3/uL (0.11-0.8); Monocytes % 6.5 % (1.7-12.7); Neutrophils # 3.9 10*3/uL (1.4-7.4); Neutrophils % 74.4 % (38.7-73.9); Platelet Count 205 T/CUMM (130-400); Red Blood Count 3.14 MC/CUMM (3.8-5.5); Red Cell Distribution Width 13.1 % (9.3-17.3); White Blood Count 5.2 T/CUMM (4-12)
[2017-07-21] MEDS: SODIUM CHLORIDE 0.9% 1,000 ML IV SCH (05:19)
[2017-07-21 05:36] LABS: Albumin 2.3 G/DL (3.4-5.0); Bilirubin,Total 0.9 MG/DL (0.2-1.0); Calcium 8.1 MG/DL (8.5-10.1); Osmolality,Calculated 307.4 MOS/KG (273-304); Potassium 3.1 MMOL/L (3.5-5.1); Total Protein 5.5 G/DL (6.4-8.3)
[2017-07-21] MEDS: DEXTROSE 50% 25 GM/50 ML VIAL IV PRN (06:03)
[2017-07-21] MEDS: LEVOFLOXACIN INJ 500 MG in PREMIX 1 EACH IV SCH (06:20)
[2017-07-21 08:41] LABS: ABG Base Excess -7.5 MMOL/L (-2.5-2.5); ABG HCO3 18.2 MMOL/L (20-26); ABG Oxygen Saturation 91.3 % (95-100); ABG PCO2 39.8 MM HG (35-48); ABG PH 7.281 (7.35-7.45); ABG PO2 67.9 MM HG (80-95); ABG TCO2 17.3 MMOL/L (23-27)
[2017-07-21] MEDS ORDERED: LANSOPRAZOLE ODT 30 MG TABLET NG SCH (09:00)
[2017-07-21] MEDS: SILVER SULFADIAZINE 1% CREAM 400 GM JAR TOP SCH (09:12)
[2017-07-21] MEDS ORDERED: ATROPINE 1 MG/10 ML SYRINGE IV ONE (09:13)
[2017-07-21] MEDS ORDERED: ATROPINE 1 MG/10 ML SYRINGE ONE (09:13)
[2017-07-21] MEDS: FUROSEMIDE 40 MG/4 ML VIAL IV SCH ×2 (09:51→16:55)
[2017-07-21] MEDS: ENOXAPARIN 30 MG/0.3 ML SYRINGE SUBCUT SCH (09:51)
[2017-07-21] MEDS: CLINDAMYCIN INJ 600 MG in PREMIX 1 EACH IV SCH ×2 (09:51→16:55)
[2017-07-21] MEDS: TAMSULOSIN 0.4 MG CAPSULE PO SCH (11:11)
[2017-07-21] MEDS: POTASSIUM CHLORIDE 20 MEQ/15 ML UDCUP PER TUBE SCH ×2 (11:11→15:05)
[2017-07-21] MEDS: CALCITRIOL 0.25 MCG CAPSULE PO SCH (11:12)
[2017-07-21] MEDS: ASPIRIN EC 81 MG TABLET PO SCH (11:12)
[2017-07-21 16:11] VITALS: BP 121/58
== END 2017-07-21 16:20 | disposition expired | DRG 682 ==
LOC: N.5E 22:46 → SUATTDRO 22:46 → N.ICU 07-19 04:48
PROVIDERS: ADMIT Internal Medicine; ATTEND Internal Medicine